=== PATIENT | female | born 1990 | race Caucasian/White ===

== ENCOUNTER 2023-06-12 18:20 | Emergency (ER) | payer OTHER, SELFPAY ==
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
[2023-06-12 18:28] VITALS: BP 118/70; BP 130/58; PULSE 91; PULSE 92; PULSE 97; RESP 19; RESP 20; TEMP 36.5; O2SAT 100; O2SAT 98; BMI 52.2
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
[2023-06-12 22:26] VITALS: BP 108/59; PULSE 74; RESP 17; O2SAT 97
[2023-06-12] MEDS: Ketorolac Tromethamine 30 MG/ML VIAL IM (23:34)
[2023-06-13 02:00] VITALS: BP 108/59; PULSE 74; RESP 17; TEMP 36.5; O2SAT 97
== END 2023-06-13 02:01 | disposition home or self-care (01) ==
PROVIDERS: Emergency Provider Emergency Medicine Emergency Medical Services
DX: S00.83XA Contusion of other part of head, initial encounter (principal); V43.62XA Car passenger injured in collision with other type car in traffic accident, initial encounter; Y93.9 Activity, unspecified; Y92.410 Unspecified street and highway as the place of occurrence of the external cause; Y99.9 Unspecified external cause status
CPT/HCPCS: 70450; 70486; 71250; 72125; 74176; 96372; 99284; J1885

== ENCOUNTER 2023-09-06 07:06 | Emergency (ER) | payer OTHER, SELFPAY ==
[2023-09-06] VITALS (7 sets, daily range): BP systolic 94–124; BP diastolic 30–88; PULSE 50–67; RESP 18–20; TEMP 36.6–36.8; O2SAT 97–99; BMI 48.9
--- NOTE | ~2023-09-06 | CT_ITS ---
EXAMINATION: CT ABDOMEN AND PELVIS WITHOUT CONTRAST CLINICAL INFORMATION: Left flank pain COMPARISON: CT scan of abdomen and pelvis on 06/12/2023 TECHNIQUE: Multidetector volumetric imaging was performed from the superior aspect of the liver through the pubic symphysis. Sagittal and coronal reformatted images were obtained on the technologist's workstation. This CT examination was performed using dose optimization techniques as appropriate, variously including the following: *Automated exposure control *Adjustment of mA and/or kV according to patient size (this includes techniques or standardized protocols for targeted exams where dose is matched to indication/reason for exam; i.e. extremities or head) *Use of iterative reconstruction technique DLP: 850 mGy-cm FINDINGS: CT ABDOMEN LUNG BASES: Bilateral lung bases are clear. LIVER: There is hepatic steatosis, mean attenuation of 25 Hounsfield units, compared to splenic attenuation of 35 Hounsfield units. GALLBLADDER AND BILIARY TREE: Gallbladder appears unremarkable without calcified stones. Common bile duct is not dilated. SPLEEN: The spleen is normal in size without focal lesion on noncontrast enhanced images. PANCREAS: The pancreas appears unremarkable on noncontrast enhanced images. ADRENAL GLANDS: Adrenal glands are normal in size without focal lesion bilaterally. KIDNEYS: The visualized bilateral kidneys are normal in size without stones. Mild remaining right renal pelviectasis is present. No left caliectasis or dilated pelvis is seen. No dilated ureters are found. BOWELS: There is no abnormal dilatation of the large and small bowel loops. RETROPERITONEUM: No abnormally enlarged retroperitoneal lymph nodes, mass or hematoma could be seen. BLOOD VESSELS: Abdominal aorta is normal in size and smooth in outline. ABDOMINAL WALL: Small umbilical hernia containing mesenteric fat is seen. PERITONEUM: There is no ascites. There were no abdominal peritoneal inflammatory changes seen. No free peritoneal air was seen. BONES: No fracture or dislocation. No focal bone lesion diagnostic of metastatic disease could be seen in the lumbar region. CT PELVIS URINARY BLADDER: The visualized urinary bladder is normal, filled with urine. No intraluminal stones are found. No abnormally dilated distal ureters are seen. BOWELS: There is no abnormal dilatation of the large and small bowel loops. Appendix cannot be identified. GENITAL ORGANS: No adnexal mass lesion could be seen. The uterus is unremarkable. LYMPH NODES: No abnormally enlarged iliac or inguinal lymph nodes are seen. PERITONEUM: No inflammatory changes, ascites or free peritoneal air are found in the pelvis. BONES: No fracture or dislocation. No focal bone lesion diagnostic of metastatic disease could be seen in the pelvis. CT/CT abdomen pelvis wo IV con IMPRESSION: 1. Interval marked resolution of right hydronephrosis. 2. No renal stone, no left hydronephrosis or hydroureter is seen. 3. No urinary bladder stone or distal ureteric stone is found. Fleischner guidelines were followed.
--- NOTE | 2023-09-06 07:14 | PC.NURSE ---
Pt. arrives per EMS. Settled into room. C/o 11/16 abd. pain. Awaiting provider assessment.
--- NOTE | 2023-09-06 07:47 | PC.NURSE ---
Unable to obtain IV access after attempts x2. JAMIE Price aware for ultrasound-guided IV.
--- NOTE | 2023-09-06 08:20 | PC.NURSE ---
Provider at bedside attempting US-guided IV.
[2023-09-06] MEDS: Lidocaine HCl 1%/Epi 1:100,000 10 ML VIAL INFILTRATI (08:24)
--- NOTE | 2023-09-06 08:24 | PC.NURSE ---
Lidocaine scanned and left at pt.'s bedside for provider to numb skin prior to US-guided IV insertion.
--- NOTE | 2023-09-06 08:26 | PC.NURSE ---
Medications delayed d/t awaiting IV access.
--- NOTE | 2023-09-06 08:52 | PC.NURSE ---
Provider JAMIE Price placed 20G IV in LAC.
[2023-09-06] MEDS: ondansetron HCL 4 MG/2 ML VIAL IVPUSH (08:53)
[2023-09-06] MEDS: Ketorolac Tromethamine 15 MG/ML VIAL IVPUSH (08:53)
[2023-09-06] MEDS: Morphine Sulfate 10 MG/ML CARTRIDGE 6 MG IVPUSH (08:54)
[2023-09-06 09:00] LABS: MANUAL DIFF FLAG NO
[2023-09-06 09:10] LABS: Appearance Urine Cloudy; Color Urine Yellow; Glucose Urine UA Negative (Negative); Leukocyte Esterase Urine Moderate (2+) (Negative); Nitrite Urine Negative (Negative); PH 5.5 (5.0-9.0); Specific Gravity - Urine 1.015 (1.005-1.025); UMIC TRIGGER UACC YES; Urine Blood Large (3+) (Negative); Urine Ketones Negative (Negative); Urine Protein 30 (1+) mg/dL (Neg-Trace)
[2023-09-06 09:12] LABS: Basophils Absolute Auto 0.1 X10*3/uL (0.0-0.2); Basophils Percent Auto 0.4 % (0-2); Eosinophils Absolute Auto 0.1 X10*3/uL (0.0-0.4); Eosinophils Percent Auto 0.4 % (0-4); Hematocrit 40.1 % (37.0-47.0); Hemoglobin 13.6 g/dl (12.0-16.0); Imm Gran Abs Auto 0.05 X10*3/uL (0.00-0.03); Imm Gran Pct Auto 0.4 % (0.0-0.4); Lymphocytes Absolute Auto 2.9 X10*3/uL (1.2-4.9); Lymphocytes Percent Auto 20.4 % (20-40); Mean Corpuscular HGB Conc 33.9 g/dl (31.0-35.0); Mean Corpuscular Hemoglobin 30.5 pg (27.0-33.0); Mean Corpuscular Volume 89.9 fL (80.0-98.0); Mean Platelet Volume 9.9 fL (9.4-12.3); Monocytes Absolute Auto 0.7 X10*3/uL (0.1-1.2); Monocytes Percent Auto 4.8 % (2-11); Neutrophils Absolute Auto 10.4 x10*3/uL (2.0-8.3); Neutrophils Percent Auto 73.6 % (45-73); Platelet Count 337 X10*3/uL (160-400); Red Blood Count 4.46 X10*6/uL (4.20-5.50); Red Cell Distribution Width 12.4 % (11.0-16.0); White Blood Count 14.1 X10*3/uL (4.8-10.8)
[2023-09-06 09:17] LABS: Bacteria Urine 4+ (None Seen); UACC Culture Trigger YES; WBC Urine >50 /HPF (0-5)
[2023-09-06 09:25] LABS: Alanine Aminotransferase 16 U/L (0-31); Alkaline Phosphatase 87 U/L (39-117); Anion Gap 11 (12-20); Aspartate Amino Transferase 21 U/L (5-31); Bilirubin Total 0.2 mg/dL (0.0-1.0); Blood Urea Nitrogen 13 mg/dL (9-16); Calcium 9.4 mg/dL (8.4-10.2); Carbon Dioxide 24 mmol/L (22-29); Chloride 108 mmol/L (96-108); Creatinine Clr Calc Pharmacy 116.6; Estimated Glomerular Filt Rate > 60; Glucose Random 102 mg/dL (60-115); Potassium 4.2 mmol/L (3.3-5.1); Sodium 139 mmol/L (135-145); Total Protein 7.7 g/dL (6.5-8.0)
[2023-09-06 12:44] LABS: UPreg QC Valid YES; Urine Pregnancy NEGATIVE (NEGATIVE)
--- NOTE | 2023-09-06 16:22 | ED_ITS ---
HPI - Abdominal Pain General Chief Complaint: Abdominal Pain Stated Complaint: L FLANK PAIN, N/V Time Seen by Provider: 09/06/23 07:33 Source: patient Limitations: no limitations History of Present Illness ED Provider: Teresa Cavanaugh PA-C HPI narrative: 32-year-old female with history of morbid obesity and kidney stones presents with left flank pain. Patient states she woke with extreme discomfort over mid to lower flank that radiates to the left lower quadrant. The pain is intermittent, becomes sharp at times. Associated nausea vomiting. Denies dysuria, obvious hematuria or fever. Denies new vaginal discharge or bleeding, no history of ovarian cysts. Related Data Previous Rx's ?Medication ?Instructions ?Recorded naproxen 500 mg tablet 500 mg PO BID PRN pain 7 days #14 06/13/23 tabs cefuroxime axetil 250 mg tablet 250 mg PO BID 7 days #14 tabs 09/19/23 ibuprofen 600 mg tablet 600 mg PO Q6H PRN pain #30 tabs 09/19/23 morphine 15 mg immediate release 15 mg PO Q6H PRN pain #10 tabs 09/19/23 tablet ondansetron 4 mg disintegrating 4 mg PO Q8H PRN nausea and 09/19/23 tablet vomiting #20 tabs tamsulosin 0.4 mg capsule 0.4 mg PO DAILY 7 days #7 caps 09/19/23 Allergies Allergy/AdvReac Type Severity Reaction Status Date / Time No Known Allergies Allergy Verified 09/19/23 12:18 Review of Systems Review of Systems Yes all other systems are reviewed and are negative Constitutional: Denies fever(s) Cardiovascular: Denies chest pain and Denies dyspnea Respiratory: Denies dyspnea Gastrointestinal: Reports abdominal pain, Denies diarrhea, Denies loose stools, Reports nausea and Reports vomiting Genitourinary: Denies hematuria, Denies dysuria, Reports flank pain, Denies vaginal discharge and Denies vaginal odor PMFSH Past Medical History Attestation statement: The following information was validated with the patient. Medical History Kidney stones Surgical History History of Hx of appendectomy Social History Social History (Updated 09/19/23 @ 12:51 by Corina Beck DO) Patient Tobacco Use Status: Never used Tobacco Substance Use Type: Marijuana Advance Directives: No Advance Directives Information Provided: No Do you have a plan to hurt others: No Plan Physical Exam ED Vital Signs: Vital Signs - 24 hr 09/06/23 07:10 09/06/23 07:15 09/06/23 08:54 Temperature 97.9 F 97.9 F Pulse Rate 66 66 Respiratory Rate 18 18 20 Blood Pressure 124/63 124/63 Pulse Oximetry 97 97 Oxygen Delivery Method Room Air Room Air 09/06/23 10:07 09/06/23 14:05 Temperature 97.9 F 97.8 F Pulse Rate 67 50 Respiratory Rate 18 18 Blood Pressure 118/35 L 94/30 L Pulse Oximetry 97 99 Oxygen Delivery Method Room Air Room Air BMI result Body Mass Index 48.9 Const Other: Appears extremely uncomfortable, crying, difficult for her to sit still on the stretcher Resp Other: Nonlabored respiration Cardio Other: Normal peripheral perfusion GI Other: Abdomen is soft, obese, nontender nondistended Back/Spine/Pelvis Other: No CVA tenderness Procedures EJ/Peripheral Line Arm L: Time Out Performed: No Skin Cleansed in Sterile Fashion: Yes Size (gauge): 20 IV Secured and Dressing Applied: Yes Patient Tolerated Procedure: well Additional Comments: Performed via ultrasound guidance Course Course Course Narrative: I have independently reviewed the following tests: Labs: Slight leukocytosis, not anemic, no electrolyte abnormality, urine not infected passing hematuria CT abdomen and pelvis:[place] [id number] CT Scan Report Signed Patient: Felicia Adhikari MR#: [id number] : 1990 Acct:[id number] Age/Sex: 32 / F ADM Date: 09/06/23 Loc: HO.ED Attending Dr: Ordering Physician: Teresa Cavanaugh Date of Service: 09/06/23 Procedure(s): CT abdomen pelvis wo IV con Accession Number(s): [id number] cc: Teresa Cavanaugh; Physician,None ~ EXAMINATION: CT ABDOMEN AND PELVIS WITHOUT CONTRAST CLINICAL INFORMATION: Left flank pain COMPARISON: CT scan of abdomen and pelvis on 06/12/2023 TECHNIQUE: Multidetector volumetric imaging was performed from the superior aspect of the liver through the pubic symphysis. Sagittal and coronal reformatted images were obtained on the technologist's workstation. This CT examination was performed using dose optimization techniques as appropriate, variously including the following: *Automated exposure control *Adjustment of mA and/or kV according to patient size (this includes techniques or standardized protocols for targeted exams where dose is matched to indication/reason for exam; i.e. extremities or head) *Use of iterative reconstruction technique DLP: 850 mGy-cm FINDINGS: CT ABDOMEN LUNG BASES: Bilateral lung bases are clear. LIVER: There is hepatic steatosis, mean attenuation of 25 Hounsfield units, compared to splenic attenuation of 35 Hounsfield units. GALLBLADDER AND BILIARY TREE: Gallbladder appears unremarkable without calcified stones. Common bile duct is not dilated. SPLEEN: The spleen is normal in size without focal lesion on noncontrast enhanced images. PANCREAS: The pancreas appears unremarkable on noncontrast enhanced images. ADRENAL GLANDS: Adrenal glands are normal in size without focal lesion bilaterally. KIDNEYS: The visualized bilateral kidneys are normal in size without stones. Mild remaining right renal pelviectasis is present. No left caliectasis or dilated pelvis is seen. No dilated ureters are found. BOWELS: There is no abnormal dilatation of the large and small bowel loops. RETROPERITONEUM: No abnormally enlarged retroperitoneal lymph nodes, mass or hematoma could be seen. BLOOD VESSELS: Abdominal aorta is normal in size and smooth in outline. ABDOMINAL WALL: Small umbilical hernia containing mesenteric fat is seen. PERITONEUM: There is no ascites. There were no abdominal peritoneal inflammatory changes seen. No free peritoneal air was seen. BONES: No fracture or dislocation. No focal bone lesion diagnostic of metastatic disease could be seen in the lumbar region. CT PELVIS URINARY BLADDER: The visualized urinary bladder is normal, filled with urine. No intraluminal stones are found. No abnormally dilated distal ureters are seen. BOWELS: There is no abnormal dilatation of the large and small bowel loops. Appendix cannot be identified. GENITAL ORGANS: No adnexal mass lesion could be seen. The uterus is unremarkable. LYMPH NODES: No abnormally enlarged iliac or inguinal lymph nodes are seen. PERITONEUM: No inflammatory changes, ascites or free peritoneal air are found in the pelvis. BONES: No fracture or dislocation. No focal bone lesion diagnostic of metastatic disease could be seen in the pelvis. CT/CT abdomen pelvis wo IV con IMPRESSION: 1. Interval marked resolution of right hydronephrosis. 2. No renal stone, no left hydronephrosis or hydroureter is seen. 3. No urinary bladder stone or distal ureteric stone is found. Discussed with the patient that she could have passed a stone, the her urine is not infected, just passing blood. Since being medicated, she has not had additional symptoms. Medical Decision Making Medical Decision Making MDM Narrative: 32-year-old female with history of morbid obesity and kidney stones presents with left flank pain. Patient states she woke with extreme discomfort over mid to lower flank that radiates to the left lower quadrant. The pain is intermittent, becomes sharp at times. Associated nausea vomiting. Denies dysuria, obvious hematuria or fever. Denies new vaginal discharge or bleeding, no history of ovarian cysts. Problem: Obesity, kidney stones History: Per patient I have considered the following differential diagnoses: Renal colic, pyelonephritis, UTI, torsion, diverticulitis Plan: Given distribution of discomfort in nature of symptoms, I am concerned she is passing a stone. We will obtain screening labs and a urinalysis. Giving morphine, Toradol and Zofran. We will obtain a CT scan. Thought about pyelonephritis, however the patient has no urinary symptoms, no CVA tenderness in his afebrile. Thought about torsion, however her abdominal exam is benign, she has no history of ovarian cysts. Thought about diverticulitis given left lower abdominal pain, however again no focal left lower quadrant pain on exam and she does not have concurrent diarrhea. I have independently reviewed the following tests: Labs: Slight leukocytosis, not anemic, no electrolyte abnormality, not , urine not infected but she is passing hematuria CT abdomen and pelvis:COMPARISON: 09/06/2023 TECHNIQUE: Multidetector volumetric imaging was performed from the superior aspect of the liver through the pubic symphysis. Sagittal and coronal reformatted images were obtained on the technologist's workstation. This CT examination was performed using dose optimization techniques as appropriate, variously including the following: *Automated exposure control *Adjustment of mA and/or kV according to patient size (this includes techniques or standardized protocols for targeted exams where dose is matched to indication/reason for exam; i.e. extremities or head) *Use of iterative reconstruction technique DLP: 951 mGy-cm FINDINGS: LUNG BASES: No pleural or pericardial effusion. Small hiatal hernia. LIVER, GALLBLADDER, AND BILIARY TREE: The noncontrast liver is decreased in attenuation. No biliary ductal dilatation is present. The gallbladder is unremarkable with no evidence of radiopaque gallstones, gallbladder wall thickening, or obvious pericholecystic inflammatory changes. PANCREAS: Unremarkable. SPLEEN: Unremarkable. ADRENAL GLANDS: Unremarkable. KIDNEYS AND URETERS: The kidneys are symmetric in size. Possible punctate bilateral nonobstructing renal calculi. Stable right renal caliectasis. There is mild fullness of the left renal collecting system with 4 mm calculus at the left ureterovesical junction. BLADDER: No bladder calculus. GASTROINTESTINAL TRACT: No small bowel obstruction. ABDOMINAL WALL: No significant hernia is appreciated. LYMPH NODES: No bulky lymphadenopathy. VASCULAR: Normal caliber abdominal aorta. PELVIC VISCERA: Unremarkable. OSSEOUS STRUCTURES: No destructive bone lesions. CT/CT abdomen pelvis wo IV con IMPRESSION: 4 mm calculus at the left ureterovesical junction with mild fullness of the left renal collecting system. Hepatic steatosis. Differential Diagnosis Differential Diagnoses: The differential diagnosis associated with the presentation includes Lab Data 09/06/23 08:56 09/06/23 08:56 Labs: Lab Results 09/06/23 09/06/23 Range/Units 08:56 09:02 WBC 14.1 H (4.8-10.8) X10*3/uL RBC 4.46 (4.20-5.50) X10*6/uL Hgb 13.6 (12.0-16.0) g/dl Hct 40.1 (37.0-47.0) % MCV 89.9 (80.0-98.0) fL MCH 30.5 (27.0-33.0) pg MCHC 33.9 (31.0-35.0) g/dl RDW 12.4 (11.0-16.0) % Plt Count 337 (160-400) X10*3/uL MPV 9.9 (9.4-12.3) fL Immature Gran % (Auto) 0.4 (0.0-0.4) % Neut % (Auto) 73.6 H (45-73) % Lymph % (Auto) 20.4 (20-40) % [place] % (Auto) 4.8 (2-11) % Eos % (Auto) 0.4 (0-4) % Baso % (Auto) 0.4 (0-2) % Lymph # (Auto) 2.9 (1.2-4.9) X10*3/uL [place] # (Auto) 0.7 (0.1-1.2) X10*3/uL Eos # (Auto) 0.1 (0.0-0.4) X10*3/uL Baso # (Auto) 0.1 (0.0-0.2) X10*3/uL Abs Immat Gran (auto) 0.05 H (0.00-0.03) X10*3/uL Absolute Neuts (auto) 10.4 H (2.0-8.3) x10*3/uL Absolute Nucleated RBC 0.000 (0.0-0.012) X10*3/uL Nucleated RBC % (auto) 0.0 (0.0-0.2) /100WBC Hold Purple Top SEE NOTE Sodium 139 (135-145) mmol/L Potassium 4.2 (3.3-5.1) mmol/L Chloride 108 (96-108) mmol/L Carbon Dioxide 24 (22-29) mmol/L Anion Gap 11 L (12-20) BUN 13 (9-16) mg/dL Creatinine 0.77 (0.5-1.4) mg/dL Estim Creat Clear Calc 116.6 Estimated GFR > 60 Random Glucose 102 (60-115) mg/dL Calcium 9.4 (8.4-10.2) mg/dL Total Bilirubin 0.2 (0.0-1.0) mg/dL AST 21 (5-31) U/L ALT 16 (0-31) U/L Alkaline Phosphatase 87 (39-117) U/L Total Protein 7.7 (6.5-8.0) g/dL Albumin 4.0 (3.5-5.0) g/dL Urine Color Yellow Urine Appearance Cloudy Urine pH 5.5 (5.0-9.0) Ur Specific [place] 1.015 (1.005-1.025) Urine Protein 30 (1+) H (Neg-Trace) mg/dL Urine Glucose (UA) Negative (Negative) mg/dL Urine Ketones Negative (Negative) mg/dL Urine Blood Large (3+) H (Negative) Urine Nitrite Negative (Negative) Ur Leukocyte Esterase Moderate (2+) H (Negative) Urine RBC 3-5 H (0-2) /HPF Urine WBC >50 H (0-5) /HPF Ur Squamous Epith Cells 3-5 (0-2) /HPF Urine Bacteria 4+ (None Seen) Hyaline Casts 3-5 (0-2) /LPF Urine Test NEGATIVE (NEGATIVE) Medications Administered Discontinued Medications Generic Name Dose Route Start Last Admin Trade Name Freq PRN Reason Stop Dose Admin Ketorolac Tromethamine 15 mg 09/06/23 07:41 09/06/23 08:53 Ketorolac Tromethamine 15 Mg/Ml Vial IVPUSH 09/06/23 07:42 15 mg ONCE ONE Administration Lidocaine/Epinephrine 10 ml 09/06/23 08:11 09/06/23 08:24 Lidocaine Hcl 1%/Epi 1:100,000 10 Ml Vial INFILTRATI 09/06/23 08:12 10 ml ONCE ONE Administration Morphine Sulfate 6 mg 09/06/23 07:41 09/06/23 08:54 Morphine Sulfate 10 Mg/Ml Cartridge IVPUSH 09/06/23 07:42 6 mg ONCE ONE Administration Protocol Ondansetron HCl 4 mg 09/06/23 07:41 09/06/23 08:53 Ondansetron Hcl 4 Mg/2 Ml Vial IVPUSH 09/06/23 07:42 4 mg ONCE ONE Administration Discharge Plan Discharge Clinical Impression: Renal colic on left side Patient Disposition: Home, Self-Care Instructions: Renal Colic (ED) Additional Instructions: All of your labs were normal, your urine is not infected, you are passing blood in your urine. It is suspect that you have passed a kidney stone, the CT scan did not reveal an obstructing stone. Follow up with your primary care provider as needed. Prescriptions: No Action naproxen 500 mg tablet 500 mg PO BID PRN (Reason: pain) 7 Days Qty: 14 0RF cefuroxime axetil 250 mg tablet 250 mg PO BID 7 Days Qty: 14 0RF tamsulosin 0.4 mg capsule 0.4 mg PO DAILY 7 Days Qty: 7 0RF ibuprofen 600 mg tablet 600 mg PO Q6H PRN (Reason: pain) Qty: 30 0RF morphine 15 mg tablet 15 mg PO Q6H PRN (Reason: pain) Qty: 10 0RF Rx Instructions: partial fill okay; Partial Fill upon patient request. ondansetron 4 mg tablet,disintegrating 4 mg PO Q8H PRN (Reason: nausea and vomiting) Qty: 20 0RF Interventions: ED Discharge Assessment Last Done: 09/06/23 16:42 Discharge Date/Time: 09/06/23 16:43 Print Language: [place]
== END 2023-09-06 16:43 | disposition home or self-care (01) ==
PROVIDERS: Physician Assistant Medical; Emergency Provider Emergency Medicine
DX: N23 Unspecified renal colic (principal); R11.2 Nausea with vomiting, unspecified; Z79.899 Other long term (current) drug therapy
CPT/HCPCS: 36415; 74176; 80053; 81001; 81025; 85025; 87086; 87147; 96374; 96375; 99284; 99285; J1885; J2270; J2405

== ENCOUNTER 2023-09-19 12:02 | Emergency (ER) | payer MEDICAID, SELFPAY ==
--- NOTE | ~2023-09-19 | CT_ITS ---
EXAMINATION: CT ABDOMEN AND PELVIS WITHOUT CONTRAST CLINICAL INFORMATION: Left flank pain. COMPARISON: 09/06/2023 TECHNIQUE: Multidetector volumetric imaging was performed from the superior aspect of the liver through the pubic symphysis. Sagittal and coronal reformatted images were obtained on the technologist's workstation. This CT examination was performed using dose optimization techniques as appropriate, variously including the following: *Automated exposure control *Adjustment of mA and/or kV according to patient size (this includes techniques or standardized protocols for targeted exams where dose is matched to indication/reason for exam; i.e. extremities or head) *Use of iterative reconstruction technique DLP: 951 mGy-cm FINDINGS: LUNG BASES: No pleural or pericardial effusion. Small hiatal hernia. LIVER, GALLBLADDER, AND BILIARY TREE: The noncontrast liver is decreased in attenuation. No biliary ductal dilatation is present. The gallbladder is unremarkable with no evidence of radiopaque gallstones, gallbladder wall thickening, or obvious pericholecystic inflammatory changes. PANCREAS: Unremarkable. SPLEEN: Unremarkable. ADRENAL GLANDS: Unremarkable. KIDNEYS AND URETERS: The kidneys are symmetric in size. Possible punctate bilateral nonobstructing renal calculi. Stable right renal caliectasis. There is mild fullness of the left renal collecting system with 4 mm calculus at the left ureterovesical junction. BLADDER: No bladder calculus. GASTROINTESTINAL TRACT: No small bowel obstruction. ABDOMINAL WALL: No significant hernia is appreciated. LYMPH NODES: No bulky lymphadenopathy. VASCULAR: Normal caliber abdominal aorta. PELVIC VISCERA: Unremarkable. OSSEOUS STRUCTURES: No destructive bone lesions. CT/CT abdomen pelvis wo IV con IMPRESSION: 4 mm calculus at the left ureterovesical junction with mild fullness of the left renal collecting system. Hepatic steatosis.
[2023-09-19 12:14] VITALS: BP 138/82; BP 180/92; PULSE 49; PULSE 80; RESP 20; TEMP 36.5; O2SAT 97; O2SAT 98; BMI 49.1
[2023-09-19 12:35] LABS: Basophils Absolute Auto 0.1 X10*3/uL (0.0-0.2); Basophils Percent Auto 0.6 % (0-2); Eosinophils Absolute Auto 0.1 X10*3/uL (0.0-0.4); Eosinophils Percent Auto 0.5 % (0-4); Hematocrit 40.2 % (37.0-47.0); Hemoglobin 13.8 g/dl (12.0-16.0); Imm Gran Abs Auto 0.05 X10*3/uL (0.00-0.03); Imm Gran Pct Auto 0.4 % (0.0-0.4); Lymphocytes Absolute Auto 3.6 X10*3/uL (1.2-4.9); Lymphocytes Percent Auto 29.7 % (20-40); MANUAL DIFF FLAG SCAN; Mean Corpuscular HGB Conc 34.3 g/dl (31.0-35.0); Mean Corpuscular Hemoglobin 30.5 pg (27.0-33.0); Mean Corpuscular Volume 88.9 fL (80.0-98.0); Monocytes Absolute Auto 0.6 X10*3/uL (0.1-1.2); Neutrophils Absolute Auto 7.7 x10*3/uL (2.0-8.3); Neutrophils Percent Auto 63.8 % (45-73); PLT CLUMP 1; Red Blood Count 4.52 X10*6/uL (4.20-5.50); Red Cell Distribution Width 12.4 % (11.0-16.0); SCAN SMEAR FLAG 1
[2023-09-19] MEDS: Ketorolac Tromethamine 15 MG/ML VIAL IVPUSH (12:42)
[2023-09-19] MEDS: Lactated Ringers 1,000 ML 999 ML IV (12:42)
[2023-09-19] MEDS: ondansetron HCL 4 MG/2 ML VIAL IVPUSH (12:42)
[2023-09-19] MEDS: Morphine Sulfate 4 MG/ML CARTRIDGE IVPUSH (12:43)
--- NOTE | 2023-09-19 12:45 | ED_ITS ---
HPI - Abdominal Pain General Chief Complaint: Abdominal Pain Stated Complaint: L GROIN PAIN, H/O STONES PER EMS Time Seen by Provider: 09/19/23 12:20 Source: patient, EMS and old records reviewed Mode of arrival: EMS Limitations: no limitations History of Present Illness ED Provider: QUINTEN DRAKE narrative: 32 yo female with PMH of kidney stones, anxiety, prior c section and appendectomy here with c/o abrupt onset L flank pain and nausea starting this AM unable to urinate. NO fevers, no vomiting. Pain radiates from back to L groin. Feels like a kidney stone. No medications taken prior to arrival. MD elicited complaint: flank pain Pertinent past history: kidney stones Onset (ago): hour(s) (few) Pain Consistency: constant Location: L flank Severity: severe Quality: stabbing Radiation: suprapubic Migration to: suprapubic Exacerbating factors: nothing Relieving factors: nothing Context: history of similar episodes Associated symptoms: nausea Related Data Previous Rx's ?Medication ?Instructions ?Recorded naproxen 500 mg tablet 500 mg PO BID PRN pain 7 days #14 06/13/23 tabs cefuroxime axetil 250 mg tablet 250 mg PO BID 7 days #14 tabs 09/19/23 ibuprofen 600 mg tablet 600 mg PO Q6H PRN pain #30 tabs 09/19/23 morphine 15 mg immediate release 15 mg PO Q6H PRN pain #10 tabs 09/19/23 tablet ondansetron 4 mg disintegrating 4 mg PO Q8H PRN nausea and 09/19/23 tablet vomiting #20 tabs tamsulosin 0.4 mg capsule 0.4 mg PO DAILY 7 days #7 caps 09/19/23 Allergies Allergy/AdvReac Type Severity Reaction Status Date / Time No Known Allergies Allergy Verified 09/19/23 12:18 Review of Systems Review of Systems Constitutional : No Weight loss, No Fever, No Chills ENT/Mouth : No sore throat, No Rhinorrhea Eyes: No Swelling, No Redness Cardiovascular : No Chest Pain, No SOB, NoEdema Respiratory : No Cough, No Sputum, No Wheezing Gastrointestinal : Positive Nausea, no Vomiting, no Diarrhea, positive abdominal Pain, No Hematochezia, No Melena Genitourinary : No Dysuria, No Urinary Frequency, No Hematuria, pos hesitation Musculoskeletal : No joint pain, No Myalgias, No Joint Swelling Skin : No Skin Lesions, No rash Neuro : No Weakness, No Numbness, No Dizziness, No Headache Psych : No Anxiety/Panic, No Depression All other systems reviewed and are negative. [facility] Past Medical History Attestation statement: The following information was validated with the patient. Source: old records reviewed Medical History Kidney stones Surgical History History of Hx of appendectomy Social History Social History (Updated 09/19/23 @ 12:51 by Corina Beck DO) Patient Tobacco Use Status: Never used Tobacco Substance Use Type: Marijuana Advance Directives: No Advance Directives Information Provided: No Physical Exam ED Vital Signs: Vital Signs - 24 hr 09/19/23 12:14 09/19/23 14:00 Temperature 97.7 F 98.5 F Pulse Rate 49 L 83 Respiratory Rate 20 16 Blood Pressure 180/92 H 112/71 Pulse Oximetry 97 97 Oxygen Delivery Method Room Air Room Air BMI result Body Mass Index 49.1 Appearance: Alert. Oriented X3. No acute distress. Eyes: Pupils equal, round and reactive to light. ENT: Pharynx normal. Neck: Normal inspection. Neck supple. CVS: Normal heart rate and rhythm. Pulses normal. Respiratory: No respiratory distress. Breath sounds normal. Abdomen: Soft and non-tender. L CVA ttp no rebound or guarding Skin: Skin warm and dry. Normal skin color. Normal skin turgor. Extremities: No lower extremity edema. Neuro: Oriented X 3. No motor deficit. No sensory deficit. Medical Decision Making Medical Decision Making MDM Narrative: 32 yo female with PMH of kidney stones, anxiety, prior c section and appendectomy here with c/o L flank pain and nausea, difficulty voiding starting this AM. Has hx of kidney stones hx of similar episode in the past. At this time will need labs, UA, IVF, IV morphine for pain, CT scan for renal colic. Suspect possible kidney stone, ovarian cyst, diverticulitis. Differential Diagnosis Differential Diagnoses: The differential diagnosis associated with the presentation includes kidney stone, ovarian cyst, diverticulitis. Admission/Observation Consideration of admission/observation: Escalation of care including admission/observation considered feels much better not toxic will start on abx pain medications and DC home tolerating PO Lab Data MDM Lab Attestation statement: I reviewed the patient's lab results. 09/19/23 12:27 09/19/23 12:27 Labs: Lab Results 09/19/23 09/19/23 Range/Units 12: 14:30 WBC 12.1 H (4.8-10.8) X10*3/uL RBC 4.52 (4.20-5.50) X10*6/uL Hgb 13.8 (12.0-16.0) g/dl Hct 40.2 (37.0-47.0) % MCV 88.9 (80.0-98.0) fL MCH 30.5 (27.0-33.0) pg MCHC 34.3 (31.0-35.0) g/dl RDW 12.4 (11.0-16.0) % Plt Count 348 (160-400) X10*3/uL MPV 9.8 (9.4-12.3) fL Immature Gran % (Auto) 0.4 (0.0-0.4) % Neut % (Auto) 63.8 (45-73) % Lymph % (Auto) 29.7 (20-40) % [place] % (Auto) 5.0 (2-11) % Eos % (Auto) 0.5 (0-4) % Baso % (Auto) 0.6 (0-2) % Lymph # (Auto) 3.6 (1.2-4.9) X10*3/uL [place] # (Auto) 0.6 (0.1-1.2) X10*3/uL Eos # (Auto) 0.1 (0.0-0.4) X10*3/uL Baso # (Auto) 0.1 (0.0-0.2) X10*3/uL Abs Immat Gran (auto) 0.05 H (0.00-0.03) X10*3/uL Absolute Neuts (auto) 7.7 (2.0-8.3) x10*3/uL Absolute Nucleated RBC 0.000 (0.0-0.012) X10*3/uL Nucleated RBC % (auto) 0.0 (0.0-0.2) /100WBC Smear Tech's Comments VERIFIED Sodium 138 (135-145) mmol/L Potassium 4.4 (3.3-5.1) mmol/L Chloride 109 H (96-108) mmol/L Carbon Dioxide 19 L (22-29) mmol/L Anion Gap 14 (12-20) BUN 12 (9-16) mg/dL Creatinine 0.71 (0.5-1.4) mg/dL Estim Creat Clear Calc 126.9 Estimated GFR > 60 Random Glucose 122 H (60-115) mg/dL Calcium 9.6 (8.4-10.2) mg/dL Magnesium 2.0 (1.6-2.6) mg/dL Total Bilirubin 0.4 (0.0-1.0) mg/dL AST 26 (5-31) U/L ALT 20 (0-31) U/L Alkaline Phosphatase 89 (39-117) U/L Total Protein 7.9 (6.5-8.0) g/dL Albumin 4.1 (3.5-5.0) g/dL Lipase 13 (8-78) U/L Beta HCG, Quant < 2 mIU/mL Urine Color Dark Yellow Urine Appearance Cloudy Urine pH 5.5 (5.0-9.0) Ur Specific [place] 1.010 (1.005-1.025) Urine Protein 100 (2+) H (Neg-Trace) mg/dL Urine Glucose (UA) Negative (Negative) mg/dL Urine Ketones Trace (Negative) mg/dL Urine Blood Large (3+) H (Negative) Urine Nitrite Negative (Negative) Ur Leukocyte Esterase Moderate (2+) H (Negative) Urine RBC 11-20 H (0-2) /HPF Urine WBC 21-50 H (0-5) /HPF Ur Squamous Epith Cells 3-5 (0-2) /HPF Urine Bacteria 4+ (None Seen) Hyaline Casts 3-5 (0-2) /LPF Independent Interpretation I performed an independent interpretation of an: CT Scan (uerterolithiasis) Radiology Impression Discussion of test interpretation with radiology: I have reviewed the radiologist's reading. Independent Historian Clinical information obtained from an independent historian. History obtained from or confirmed by: EMS External Record Review External record reviewed: Outpatient record Prescription Management I considered prescription management with: Pain Medication, Antibiotic and Other Medications Administered Discontinued Medications Generic Name Dose Route Start Last Admin Trade Name Freq PRN Reason Stop Dose Admin Lactated Ringer's 1,000 mls @ 999 mls/hr 09/19/23 12:23 09/19/23 12:42 Lr IV 09/19/23 13:23 999 mls/hr .Q1H1M ONE Administration Ketorolac Tromethamine 15 mg 09/19/23 12:22 09/19/23 12:42 Ketorolac Tromethamine 15 Mg/Ml Vial IVPUSH 09/19/23 12:23 15 mg ONCE ONE Administration Morphine Sulfate 4 mg 09/19/23 12:22 09/19/23 12:43 Morphine Sulfate 4 Mg/Ml Cartridge IVPUSH 09/19/23 12:23 4 mg ONCE ONE Administration Protocol Ondansetron HCl 4 mg 09/19/23 12:22 09/19/23 12:42 Ondansetron Hcl 4 Mg/2 Ml Vial IVPUSH 09/19/23 12:23 4 mg ONCE ONE Administration Critical Care Time Critical Care Time Critical Care Time: Yes Total Critical Care Time: 35 Attestation: pain improved with IV morphine, repeat assessments, review of records I attest to this time spent taking care of the patient Discharge Plan Discharge Clinical Impression: Ureterolithiasis Patient Disposition: Home, Self-Care Instructions: Ureteral Stones (ED) Additional Instructions: start antibiotic tomorrow return for fevers, vomiting, unable to eat or drink you should pass this stone on your own remember to drink plenty of fluids 4mm stone at the junction of the bladder Prescriptions: New cefuroxime axetil 250 mg tablet 250 mg PO BID 7 Days Qty: 14 0RF tamsulosin 0.4 mg capsule 0.4 mg PO DAILY 7 Days Qty: 7 0RF ibuprofen 600 mg tablet 600 mg PO Q6H PRN (Reason: pain) Qty: 30 0RF morphine 15 mg tablet 15 mg PO Q6H PRN (Reason: pain) Qty: 10 0RF Rx Instructions: partial fill okay; Partial Fill upon patient request. ondansetron 4 mg tablet,disintegrating 4 mg PO Q8H PRN (Reason: nausea and vomiting) Qty: 20 0RF No Action naproxen 500 mg tablet 500 mg PO BID PRN (Reason: pain) 7 Days Qty: 14 0RF Print Language: Icelandic
[2023-09-19 12:49] LABS: Alanine Aminotransferase 20 U/L (0-31); Albumin Level 4.1 g/dL (3.5-5.0); Alkaline Phosphatase 89 U/L (39-117); Anion Gap 14 (12-20); Aspartate Amino Transferase 26 U/L (5-31); Bilirubin Total 0.4 mg/dL (0.0-1.0); Blood Urea Nitrogen 12 mg/dL (9-16); Calcium 9.6 mg/dL (8.4-10.2); Carbon Dioxide 19 mmol/L (22-29); Chloride 109 mmol/L (96-108); Creatinine Clr Calc Pharmacy 126.9; Estimated Glomerular Filt Rate > 60; Glucose Random 122 mg/dL (60-115); Lipase 13 U/L (8-78); Potassium 4.4 mmol/L (3.3-5.1); Sodium 138 mmol/L (135-145); Total Protein 7.9 g/dL (6.5-8.0)
[2023-09-19 13:06] LABS: Mean Platelet Volume 9.8 fL (9.4-12.3); Platelet Count 348 X10*3/uL (160-400); SLIDE REVIEW VERIFIED; White Blood Count 12.1 X10*3/uL (4.8-10.8)
[2023-09-19 14:00] VITALS: BP 112/71; PULSE 83; RESP 16; TEMP 36.9; O2SAT 97
[2023-09-19 14:18] LABS: HCG Quantitative < 2 mIU/mL
[2023-09-19 14:56] LABS: Appearance Urine Cloudy; Bacteria Urine 4+ (None Seen); Color Urine Dark Yellow; Glucose Urine UA Negative (Negative); Leukocyte Esterase Urine Moderate (2+) (Negative); Nitrite Urine Negative (Negative); PH 5.5 (5.0-9.0); UACC Culture Trigger YES; UMIC TRIGGER UACC YES; Urine Blood Large (3+) (Negative); Urine Ketones Trace mg/dL (Negative); Urine Protein 100 (2+) mg/dL (Neg-Trace); WBC Urine 21-50 /HPF (0-5)
[2023-09-19 16:00] VITALS: BP 127/72; PULSE 81; RESP 16; TEMP 36.5; O2SAT 98
[2023-09-19] MEDS: cefTRIAXone sodium 1 GM in 0.9 % Sodium Chloride 50 ML IV (17:03)
[2023-09-19 17:40] VITALS: BP 127/72; PULSE 81; RESP 16; TEMP 36.5; O2SAT 98
== END 2023-09-19 17:39 | disposition home or self-care (01) ==
PROVIDERS: Emergency Provider Emergency Medicine
DX: N20.1 Calculus of ureter (principal); R10.32 Left lower quadrant pain; F41.9 Anxiety disorder, unspecified; R11.0 Nausea; Z79.899 Other long term (current) drug therapy
CPT/HCPCS: 36415; 74176; 80053; 81001; 83690; 83735; 84702; 85025; 87086; 87147; 96374; 96375; 99284; J0696; J1885; J2270; J2405; J7120

== ENCOUNTER 2023-10-13 11:57 | Emergency (ER) | payer MEDICAID, SELFPAY ==
--- NOTE | ~2023-10-13 | US_ITS ---
EXAMINATION: US RETROPERITONEAL LIMITED CLINICAL INFORMATION: Left side renal calculus. COMPARISON: CT abdomen pelvis dated September 19, 2023. TECHNIQUE: Real-time ultrasound of the kidneys was performed. FINDINGS: The right kidney measures 12.4 x 5.7 x 6.4 cm. There is a 1 x 0.7 x 1.1 cm lower pole right renal calculus. There is mild to moderate right-sided hydronephrosis. The left kidney measures 11.9 x 5.7 x 5.6 cm. No left-sided renal calculus is identified. There is left-sided caliectasis. The right ureteral jet was not seen. The left ureteral jet is appreciated. US/US retroperitoneal limited IMPRESSION: Right-sided mild to moderate hydronephrosis. There is a 1 x 0.7 x 1.1 cm lower pole right renal calculus. The right ureteral jet is not seen. There is left-sided caliectasis. Electronically signed by: Favio Bob DO 10/13/2023 05:25 PM EDT
[2023-10-13 12:09] VITALS: BP 117/49; BP 118/66; PULSE 68; PULSE 80; RESP 16; TEMP 36.5; O2SAT 98; BMI 48.5
[2023-10-13] MEDS: Lactated Ringers 1,000 ML 999 ML IV (12:33)
[2023-10-13 12:34] LABS: MANUAL DIFF FLAG NO
[2023-10-13] MEDS: Ketorolac Tromethamine 15 MG/ML VIAL IVPUSH (12:34)
[2023-10-13] MEDS: Morphine Sulfate 4 MG/ML CARTRIDGE IVPUSH (12:34)
[2023-10-13] MEDS: ondansetron HCL 4 MG/2 ML VIAL IVPUSH (12:35)
[2023-10-13 12:36] LABS: Basophils Absolute Auto 0.1 X10*3/uL (0.0-0.2); Basophils Percent Auto 0.4 % (0-2); Eosinophils Absolute Auto 0.1 X10*3/uL (0.0-0.4); Eosinophils Percent Auto 0.7 % (0-4); Hematocrit 39.6 % (37.0-47.0); Hemoglobin 13.7 g/dl (12.0-16.0); Imm Gran Abs Auto 0.05 X10*3/uL (0.00-0.03); Imm Gran Pct Auto 0.4 % (0.0-0.4); Lymphocytes Absolute Auto 3.7 X10*3/uL (1.2-4.9); Lymphocytes Percent Auto 27.2 % (20-40); Mean Corpuscular HGB Conc 34.6 g/dl (31.0-35.0); Mean Corpuscular Hemoglobin 30.7 pg (27.0-33.0); Mean Corpuscular Volume 88.8 fL (80.0-98.0); Mean Platelet Volume 9.1 fL (9.4-12.3); Monocytes Absolute Auto 0.7 X10*3/uL (0.1-1.2); Monocytes Percent Auto 5.3 % (2-11); Neutrophils Absolute Auto 8.9 x10*3/uL (2.0-8.3); Platelet Count 348 X10*3/uL (160-400); Red Blood Count 4.46 X10*6/uL (4.20-5.50); Red Cell Distribution Width 12.2 % (11.0-16.0); White Blood Count 13.4 X10*3/uL (4.8-10.8)
--- NOTE | 2023-10-13 12:38 | ED.ABDPAIN ---
HPI - Abdominal Pain General Chief Complaint: Abdominal Pain Stated Complaint: R SIDE PAIN PAIN,H/O KIDNEY STONES Time Seen by Provider: 10/13/23 12:09 Source: patient, EMS and old records reviewed Mode of arrival: EMS Limitations: no limitations History of Present Illness ED Provider: QUINTEN DRAKE narrative: 32 yo female with PMH of renal colic dx 09/18 CT scan 4mm UVJ stone - sent home with flomax and morphine - unable to follow up with urology due to insurance issues. She comes back today with c/o intermittent recurrent pain much worse yesterday and today along with nausea. No medications today. She was able to figure out her insurance. No fevers, no issues urinating. MD elicited complaint: flank pain Pertinent past history: kidney stones Onset (ago): month(s) (3+) Pain Consistency: intermittent Location: L flank Severity: moderate Quality: stabbing Radiation: none Migration to: no migration Exacerbating factors: nothing Relieving factors: nothing Context: history of similar episodes Associated symptoms: nausea Related Data Previous Rx's ?Medication ?Instructions ?Recorded naproxen 500 mg tablet 500 mg PO BID PRN pain 7 days #14 06/13/23 tabs cefuroxime axetil 250 mg tablet 250 mg PO BID 7 days #14 tabs 09/19/23 ibuprofen 600 mg tablet 600 mg PO Q6H PRN pain #30 tabs 09/19/23 morphine 15 mg immediate release 15 mg PO Q6H PRN pain #10 tabs 09/19/23 tablet ondansetron 4 mg disintegrating 4 mg PO Q8H PRN nausea and 09/19/23 tablet vomiting #20 tabs tamsulosin 0.4 mg capsule 0.4 mg PO DAILY 7 days #7 caps 09/19/23 Allergies Allergy/AdvReac Type Severity Reaction Status Date / Time No Known Allergies Allergy Verified 10/13/23 12:10 Review of Systems Review of Systems Constitutional : No Weight loss, No Fever, No Chills ENT/Mouth : No sore throat, No Rhinorrhea Eyes: No Swelling, No Redness Cardiovascular : No Chest Pain, No SOB, No Edema Respiratory : No Cough, No Sputum, No Wheezing Gastrointestinal : Positive Nausea, no Vomiting, no Diarrhea, positive abdominal Pain, No Hematochezia, No Melena Genitourinary : No Dysuria, No Urinary Frequency, No Hematuria, No Urgency Musculoskeletal : No joint pain, No Myalgias, No Joint Swelling Skin : No Skin Lesions, No rash Neuro : No Weakness, No Numbness, No Dizziness, No Headache Psych : No Anxiety/Panic, No Depression All other systems reviewed and are negative. [facility] Past Medical History Attestation statement: The following information was validated with the patient. Source: old records reviewed Medical History Kidney stones Surgical History History of Hx of appendectomy Social History Social History Patient Tobacco Use Status: Never used Tobacco Substance Use Type: Marijuana Advance Directives: No Advance Directives Information Provided: No Do you have a plan to hurt others: No Plan Physical Exam ED Vital Signs: Vital Signs - 24 hr 10/13/23 12:09 10/13/23 13:33 Temperature 97.7 F 97.7 F Pulse Rate 68 66 Respiratory Rate 16 18 Blood Pressure 117/49 L 120/58 L Pulse Oximetry 98 100 Oxygen Delivery Method Room Air Room Air BMI result Body Mass Index 48.5 Appearance: Alert. Oriented X3. No acute distress. Eyes: Pupils equal, round and reactive to light. ENT: Pharynx normal. Neck: Normal inspection. Neck supple. CVS: Normal heart rate and rhythm. Pulses normal. Respiratory: No respiratory distress. Breath sounds normal. Abdomen: Soft and non-tender. Skin: Skin warm and dry. Normal skin color. Normal skin turgor. Extremities: No lower extremity edema. No calf ttp Neuro: Oriented X 3. No motor deficit. No sensory deficit. Course Course Course Narrative: signed out to Dr. Cast pending US report Medical Decision Making Medical Decision Making MDM Narrative: 32 yo female with PMH of renal colic dx 8/ L UVJ stone 4mm unable to follow up due to insurance issues at this time will obtain labs, UA, US to evaluate if she still has stone placement vs this is MSK pain. NO fevers no infectious symptoms, IV toradol/fluids/IV morphine for pain. Differential Diagnosis Differential Diagnoses: The differential diagnosis associated with the presentation includes renal colic, back pain Admission/Observation Consideration of admission/observation: Escalation of care including admission/observation considered Lab Data MDM Lab Attestation statement: I reviewed the patient's lab results. 10/13/23 12:29 10/13/23 12:29 Labs: Lab Results 10/13/23 10/13/23 Range/Units 12:29 13:55 WBC 13.4 H (4.8-10.8) X10*3/uL RBC 4.46 (4.20-5.50) X10*6/uL Hgb 13.7 (12.0-16.0) g/dl Hct 39.6 (37.0-47.0) % MCV 88.8 (80.0-98.0) fL MCH 30.7 (27.0-33.0) pg MCHC 34.6 (31.0-35.0) g/dl RDW 12.2 (11.0-16.0) % Plt Count 348 (160-400) X10*3/uL MPV 9.1 L (9.4-12.3) fL Immature Gran % (Auto) 0.4 (0.0-0.4) % Neut % (Auto) 66.0 (45-73) % Lymph % (Auto) 27.2 (20-40) % [place] % (Auto) 5.3 (2-11) % Eos % (Auto) 0.7 (0-4) % Baso % (Auto) 0.4 (0-2) % Lymph # (Auto) 3.7 (1.2-4.9) X10*3/uL [place] # (Auto) 0.7 (0.1-1.2) X10*3/uL Eos # (Auto) 0.1 (0.0-0.4) X10*3/uL Baso # (Auto) 0.1 (0.0-0.2) X10*3/uL Abs Immat Gran (auto) 0.05 H (0.00-0.03) X10*3/uL Absolute Neuts (auto) 8.9 H (2.0-8.3) x10*3/uL Absolute Nucleated RBC 0.000 (0.0-0.012) X10*3/uL Nucleated RBC % (auto) 0.0 (0.0-0.2) /100WBC Sodium 137 (135-145) mmol/L Potassium 4.2 (3.3-5.1) mmol/L Chloride 105 (96-108) mmol/L Carbon Dioxide 23 (22-29) mmol/L Anion Gap 13 (12-20) BUN 12 (9-16) mg/dL Creatinine 0.68 (0.5-1.4) mg/dL Estim Creat Clear Calc 131.4 Estimated GFR > 60 Random Glucose 82 (60-115) mg/dL Calcium 9.5 (8.4-10.2) mg/dL Magnesium 2.1 (1.6-2.6) mg/dL Total Bilirubin 0.5 (0.0-1.0) mg/dL Direct Bilirubin 0.2 (0.0-0.5) mg/dL AST 17 (5-31) U/L ALT 17 (0-31) U/L Alkaline Phosphatase 98 (39-117) U/L Total Protein 7.5 (6.5-8.0) g/dL Albumin 4.0 (3.5-5.0) g/dL Beta HCG, Quant < 2 mIU/mL Urine Color Yellow Urine Appearance Clear Urine pH 6.0 (5.0-9.0) Ur Specific [place] 1.020 (1.005-1.025) Urine Protein Negative (Neg-Trace) mg/dL Urine Glucose (UA) Negative (Negative) mg/dL Urine Ketones Negative (Negative) mg/dL Urine Blood Negative (Negative) Urine Nitrite Negative (Negative) Ur Leukocyte Esterase Negative (Negative) Independent Interpretation I performed an independent interpretation of an: Ultrasound Independent Historian Clinical information obtained from an independent historian. History obtained from or confirmed by: EMS External Record Review External record reviewed: Inpatient record Medications Administered Discontinued Medications Generic Name Dose Route Start Last Admin Trade Name Freq PRN Reason Stop Dose Admin Lactated Ringer's 1,000 mls @ 999 mls/hr 10/13/23 12:16 10/13/23 14:06 Lr IV 10/13/23 13:16 Infused .Q1H1M ONE Infusion Ketorolac Tromethamine 15 mg 10/13/23 12:21 10/13/23 12:34 Ketorolac Tromethamine 15 Mg/Ml Vial IVPUSH 10/13/23 12:22 15 mg ONCE ONE Administration Morphine Sulfate 4 mg 10/13/23 12:21 10/13/23 12:34 Morphine Sulfate 4 Mg/Ml Cartridge IVPUSH 10/13/23 12:22 4 mg ONCE ONE Administration Protocol Ondansetron HCl 4 mg 10/13/23 12:21 10/13/23 12:35 Ondansetron Hcl 4 Mg/2 Ml Vial IVPUSH 10/13/23 12:22 4 mg ONCE ONE Administration Discharge Plan Discharge Clinical Impression: Left flank pain Patient Disposition: Still a Patient Prescriptions: No Action naproxen 500 mg tablet 500 mg PO BID PRN (Reason: pain) 7 Days Qty: 14 0RF cefuroxime axetil 250 mg tablet 250 mg PO BID 7 Days Qty: 14 0RF tamsulosin 0.4 mg capsule 0.4 mg PO DAILY 7 Days Qty: 7 0RF ibuprofen 600 mg tablet 600 mg PO Q6H PRN (Reason: pain) Qty: 30 0RF morphine 15 mg tablet 15 mg PO Q6H PRN (Reason: pain) Qty: 10 0RF Rx Instructions: partial fill okay; Partial Fill upon patient request. ondansetron 4 mg tablet,disintegrating 4 mg PO Q8H PRN (Reason: nausea and vomiting) Qty: 20 0RF Print Language: Wolof
--- NOTE | 2023-10-13 12:44 | PC.NURSE ---
resting quietly in room, no obvious signs/symptoms of distress noted. IV established, labs obtained and sent. medicated per the mar w/ fluids infusing. ultrasound at bedside.
[2023-10-13 12:57] LABS: Alanine Aminotransferase 17 U/L (0-31); Alkaline Phosphatase 98 U/L (39-117); Anion Gap 13 (12-20); Aspartate Amino Transferase 17 U/L (5-31); Bilirubin Direct 0.2 mg/dL (0.0-0.5); Bilirubin Total 0.5 mg/dL (0.0-1.0); Blood Urea Nitrogen 12 mg/dL (9-16); Calcium 9.5 mg/dL (8.4-10.2); Carbon Dioxide 23 mmol/L (22-29); Chloride 105 mmol/L (96-108); Creatinine Clr Calc Pharmacy 131.4; Estimated Glomerular Filt Rate > 60; Glucose Random 82 mg/dL (60-115); Magnesium 2.1 mg/dL (1.6-2.6); Potassium 4.2 mmol/L (3.3-5.1); Sodium 137 mmol/L (135-145); Total Protein 7.5 g/dL (6.5-8.0)
[2023-10-13 12:58] LABS: HCG Quantitative < 2 mIU/mL
[2023-10-13 13:33] VITALS: BP 120/58; PULSE 66; RESP 18; TEMP 36.5; O2SAT 100
[2023-10-13 14:03] LABS: Appearance Urine Clear; Color Urine Yellow; Glucose Urine UA Negative (Negative); Leukocyte Esterase Urine Negative (Negative); Nitrite Urine Negative (Negative); Urine Blood Negative (Negative); Urine Ketones Negative (Negative); Urine Protein Negative (Neg-Trace)
[2023-10-13 17:15] VITALS: BP 121/62; PULSE 63; RESP 18; TEMP 35.7; O2SAT 100
[2023-10-13 17:49] VITALS: BP 121/62; PULSE 63; RESP 18; TEMP 35.7; O2SAT 100
== END 2023-10-13 17:50 | disposition home or self-care (01) ==
PROVIDERS: Emergency Medicine; Emergency Provider Emergency Medicine
DX: R10.9 Unspecified abdominal pain (principal); Z87.442 Personal history of urinary calculi
CPT/HCPCS: 36415; 76775; 80048; 80076; 81003; 83735; 84702; 85025; 96361; 96374; 96375; 99284; 99285; J1885; J2270; J2405; J7120

== ENCOUNTER 2024-12-01 03:46 | Emergency (ER) | payer MEDICAID, SELFPAY ==
[2024-12-01 03:49] VITALS: BP 103/56; PULSE 104; RESP 20; TEMP 36.1; O2SAT 97; BMI 50.9
--- NOTE | 2024-12-01 04:25 | PC.NURSE ---
WORK ENVIRONMENT SAFETY INSPECTOR contacted at this time d/t patient request of having KVNGE kit completed.
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
[2024-12-01 05:03] LABS: MANUAL DIFF FLAG NO
[2024-12-01 05:04] LABS: Hematocrit 40.7 % (37.0-47.0); Hemoglobin 13.8 g/dl (12.0-16.0); Imm Gran Abs Auto 0.07 X10*3/uL (0.00-0.03); Imm Gran Pct Auto 0.4 % (0.0-0.4); Lymphocytes Absolute Auto 4.4 X10*3/uL (1.2-4.9); Mean Corpuscular HGB Conc 33.9 g/dl (31.0-35.0); Mean Corpuscular Hemoglobin 29.7 pg (27.0-33.0); Mean Corpuscular Volume 87.7 fL (80.0-98.0); NRBC Abs Auto 0.000 X10*3/uL (0.0-0.012); NRBC Pct Auto 0.0 /100WBC (0.0-0.2); Platelet Count 380 X10*3/uL (160-400); Red Blood Count 4.64 X10*6/uL (4.20-5.50); White Blood Count 17.1 X10*3/uL (4.8-10.8)
[2024-12-01 05:33] LABS: Alanine Aminotransferase 25 U/L (0-31); Albumin Level 4.3 g/dL (3.5-5.0); Alkaline Phosphatase 93 U/L (39-117); Anion Gap 14 (12-20); Aspartate Amino Transferase 24 U/L (5-31); Blood Urea Nitrogen 15 mg/dL (9-16); Calcium 9.2 mg/dL (8.4-10.2); Carbon Dioxide 22 mmol/L (22-29); Chloride 108 mmol/L (96-108); Creatinine Clr Calc Pharmacy 105.0; Estimated Glomerular Filt Rate > 60; Potassium 3.8 mmol/L (3.3-5.1); Sodium 140 mmol/L (135-145); Total Protein 7.6 g/dL (6.5-8.0)
--- NOTE | 2024-12-01 05:35 | PC.NURSE ---
POLL WATCHER arrived at this time to evaluate patient. plan of care ongoing.
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
--- OUTSIDE RECORDS SUMMARY | 2024-12-01 05:35 | XMS_ITS | Clinical Summary ---
Author Organization [facility] Address [address] [place] [address] Care Team Providers Care Card Clothier Name Role Phone Unavailable Primary Care Provider Unavailabl e Active Problems Problem Noted Date Diagnosed Date Anxiety 07/21/2023 HSV infection 07/21/2023 PTSD (post-traumatic stress disorder) 07/21/2023 Severe obesity (CMS/HCC) 07/21/2023 Immunizations Immunization Administration Dates Next Due HPV, Quadrivalent 05/11/2017,08/06/2016 Influenza, IIV3, injectable 01/01/2019 Tdap 01/01/2019 Social History Tobacco Use Types Packs/Day Years Used Date Smoking Tobacco: Never Assessed Housing Stability Answer Date Recorded What is your housing situation today? I have saravanan oropeza 07/18/[address] you li ve. Do you have problems with any of the following? None of the above 07/18/2023 Food Insecurity Answer Date Recorded Within the past 12 months, y ou worried that your food would run out before you got money to buy more: Sometimes True 2023 Within the past 12 months,th e food you bought just didn't last and you didn't have enough money to get more: Sometimes True 07/18/2023 Transportation Answer Date Recorded In the past 12 months, has l ack of transportation kept you from medical appts, meetings, work or from getting things needed for daily living? Yes, it has kept me from medical appointments or getting medications. 07/18/2023 Utilities Answer Date Recorded In the past 12 months, has t he electric, gas, oil or water company threatened to shut off services in your home? No 07/18/2023 Comments Unknown Sex and Gender Information Value Date Recorded Sex Assigned at Not on file Legal Sex Female 3:44 PM EDT Gender Identity Not on file Sexual Orientation Not on file Plan of Treatment Health Maintenance Due Date Last Done Comments Depression Screening 1991 HIV Screening 1991 Lipid Panel 1991 Disability Screening 1991 Alcohol/Substance Use Screening 2003 Tobacco Screening 2003 Family Planning (PISQ) 12/20/2006 Hepatitis C Screening 12/20/2009 Hepatitis B Vaccines (1 of 3 - 19+ 3-dose series) 12/20/2010 Pap Smear 12/20/2012 HPV Vaccines (3 - 3-dose series) 08/03/2017 05/11/2017, 08/06/2016 Cervical Cancer Screening 12/20/2021 HPV/Cotest 12/20/2021 SDOH Screening 07/17/2024 07/18/2023 COVID-19 Vaccine (1 - 2023-2 5 season) 2024 Influenza Vaccine (#1) 2024 9, 01/01/2019 DTaP/Tdap/Td Vaccines (2 - T d or Tdap) 01/01/2029 01/01/2019 Zoster Vaccines (1 of 2) 12/20/2041 RSV Patients and Patients Aged 60 years or older (1 - 1-dose 75+ series) 12/20/2066 HIB [...] patient's age to complete this topic Meningococcal Vaccine Aged Out No donita lety eligible based on patient's age to complete this topic Pneumococcal Vaccine: Pediatrics (0 to 5 Years) and At-Risk Patients (6 to 49) Years Aged Out No longer eligible b ased on patient's age to complete this topic RSV under 20 months Aged Out No longe r eligible based on patient's age to complete this topic Rotavirus Vaccines Aged Out No longer eligible based on patient's age to complete this topic Insurance [facility] (O)
--- NOTE | 2024-12-01 05:38 | PC.NURSE ---
[facility] contacted at this time.
[2024-12-01 05:42] LABS: HBS Num1 1.17 mIU/mL (0-7.99); HBsAGNum1 0.38 S/CO (0.00-0.99); HIV Num 1 0.05 S/CO (0.00-0.99); Hepatitis B Surface Antigen Negative (Negative); Syphilis Screen Nonreactive (Nonreactive); ~HepC Num1 0.08 S/CO (0.00-0.79); ~Hepatitis B Surface Antibody NONREACTIVE (Nonreactive); ~Hepatitis C Antibody Nonreactive (Nonreactive)
[2024-12-01 08:00] VITALS: BP 112/79; PULSE 96; RESP 14; TEMP 36.5; O2SAT 98
[2024-12-01] MEDS: SANE Doxycycline Monohydrate 100 MG CAPSULE PO (08:55)
[2024-12-01] MEDS: SANE Dolutegravir Sodium 50 MG TAB KIT PO (08:55)
[2024-12-01] MEDS: SANE Emtricit/Tenofov DF 200/300 TABLET KIT 1 TAB PO (08:56)
[2024-12-01] MEDS: SANE metroNIDAZOLE 500 MG TABLET KIT PO (08:56)
[2024-12-01] MEDS: Hepatitis B Imm Globulin 5 ML VIAL 6.8 ML IM (09:08)
[2024-12-01] MEDS: cefTRIAXone sodium 500 MG, Lidocaine HCl 1 % MPF 1 ML IM (09:10)
[2024-12-01 09:41] VITALS: BP 135/84; PULSE 80; RESP 16; TEMP 36.5; O2SAT 98
== END 2024-12-01 09:45 | disposition home or self-care (01) ==
PROVIDERS: Emergency Medicine; Emergency Provider Emergency Medicine Emergency Medical Services
DX: T74.21XA Adult sexual abuse, confirmed, initial encounter (principal); Y99.8 Other external cause status
CPT/HCPCS: 36415; 80048; 80076; 80307; 84702; 85025; 86706; 86780; 86803; 87340; 87389; 90371; 90471; 90472; 90651; 96372; 99284; J0696; J2003